=== PATIENT | male | born 2000 | race Caucasian/White ===

== ENCOUNTER 2022-02-24 19:09 | Emergency (ER) | payer OTHER, SELFPAY ==
[2022-02-24 19:15] VITALS: BP 138/68; PULSE 91; RESP 12; TEMP 36.6; O2SAT 98
--- NOTE | 2022-02-24 20:07 | W.ED.GENAD ---
Discharge Plan Disposition Patient Disposition: HOME Condition: Stable Discharge Details Clinical Impression: Avulsion of fingertip Primary Care Provider: Unknown,Unknown ED Provider: Marino Bustos Discharge Instructions Additional Instructions: Watch for any signs of infection and return immediately to the emergency department if these occur. keep wound clean and dry. Return to the emergency department for any significant return of bleeding that cannot be easily controlled. Stand Alone Forms: Work Release Referrals: Primary Care Provider [Outside] (As needed for reassessment) Discharge Data Discharge Date/Time-TO BE ENTERED AT DEPARTURE: 02/24/22 20:24 Medical Decision Making Patient presenting to the emergency department for chief complaint of left index finger laceration. He states he was cutting potatoes with a clean knife and cut the tip of his left index finger off. Patient denies any other injury or trauma. Physical exam shows a fingertip avulsion of the left index finger without involvement of the nail. Exam is otherwise unremarkable. Patient is unsure of when last tetanus was given so we will update tetanus. Digital block was performed and Dermabond was applied to wound. After tourniquet was removed appropriate hemostasis was achieved using this technique. Patient encouraged to keep wound clean and dry and prevent any trauma to the wound specifically for the next 48 hours to allow for appropriate hemostasis before resumption of activity. After discussion of diagnosis and plan of care patient has no further needs, questions, or concerns and states clear understanding to return to the emergency department for any worsening symptoms. This documentation was generated using [employer] system, please disregard any oddities of phrase or misspellings. HPI General Mode of arrival: ambulatory. Date/Time Provider Initiated Documentation: 02/24/22 20:05. Limitations to Documentation: no limitations. Information obtained by: patient and RN notes reviewed. History of Present Illness 21 year old M presents to the emergency department with the chief complaint of Left index finger last, described as moderate, Quality is described as sharp, and is localized to the left and upper extremity. Patient started experiencing this hour(s) (<1) and it has been constant. No relieving factors improve symptom(s), No exacerbating factors reported . Patient notes no other symptoms.. Patient did receive the following treatments prior to arrival, none General Stated Complaint: Trauma DIDIER: 3 Review of Systems Narrative: 6 systems reviewed and unremarkable except what is marked below. Integumentary/Breasts Skin/Breast: Reports as per HPI, Denies erythema, Denies unusual bruising and Reports wounds PFSH All Active Problems (Updated 02/24/22 @ 20:15 by Marino Bustos NP) Avulsion of fingertip (Acute) Social History Smoking/Tobacco Use Status: Never Smoking risk assessment performed?: Yes Alcohol Intake: never Drug use: Never Substance use type: does not use Do you feel safe at home: Yes Do you feel safe in your relationship?: Yes Exam Const General: cooperative, no acute distress and not ill appearing Orientation: alert, awake and oriented x3 Resp Effort & Inspection: normal respiratory effort, able to speak in complete sentences and no respiratory distress Cardio Rate: regular rate Rhythm: regular rhythm Pulses: normal peripheral pulses Skin General skin exam: no rashes or lesions noted Neuro General: patient alert, patient awake, patient oriented x3, moves all extremities and no focal motor deficits Sensory Exam: no sensory deficits noted Extrem General: normal to inspection and normal exam except as noted Left upper extremity: hand Details: laceration 2nd digit distal Details: avulsion, actively bleeding, superficial, with motor nerve function intact and with sensation intact Course Vital Signs Vital signs: Vital Signs Temperature 36.6 C 02/24/22 19:15 Pulse 91 H 02/24/22 19:15 Respiratory Rate 12 02/24/22 19:15 Blood Pressure 138/68 02/24/22 19:15 Pulse Oximetry 98 02/24/22 19:15 Temperature 36.6 C 02/24/22 19:15 Pulse 91 H 02/24/22 19:15 Respiratory Rate 12 02/24/22 19:15 Respiratory Effort 02/24/22 19:45 Blood Pressure 138/68 02/24/22 19:15 Blood Pressure Position Sitting 02/24/22 19:15 Pulse Oximetry 98 02/24/22 19:15 Oxygen Delivery Method Room Air 02/24/22 19:15 Oxygen Flow Rate 0 02/24/22 19:15 Pain Level 5 02/24/22 19:15 Procedures Laceration Laceration 1: Site: hand Side (If applicable): left Size (cm): 1 Description: clean Depth: simple, single layer Local Anesthetic: Lidocaine 2% Amount of anesthesia used (mL): 2 Pre-repair: wound explored and irrigated extensively Skin layer closed with: other (Dermabond)
== END 2022-02-24 20:24 | disposition home or self-care (01) ==
PROVIDERS: Emergency Provider Nurse Practitioner Family
DX: S61.211A Laceration without foreign body of left index finger without damage to nail, initial encounter (principal); W26.0XXA Contact with knife, initial encounter; Z23 Encounter for immunization
CPT/HCPCS: 12001; 90471; 99281; 99282

== ENCOUNTER 2025-02-22 16:30 | Outpatient (REF) | payer OTHER, SELFPAY ==
[2025-02-22 20:09] LABS: Abs Immature Grans 0.02 10^3/uL (0.0-0.06); HCT 52.0 % (40.0-50.0); HGB 17.9 g/dL (13.5-17.5); Immature Grans % 0.3 %; MCH 29.2 pg (27.0-33.0); MCHC 34.4 % (32.0-36.0); MCV 85 fL (80-95); MPV 9.7 fL (8.0-11.0); Platelet Count 241 10^3/uL (130-400); RBC 6.12 10^6/uL (4.36-5.78); RDW 12.0 % (11.8-14.1); RDW-SD 36.5 fL; WBC 6.22 10^3/uL (4.4-10.8)
[2025-02-22 20:34] LABS: RBC Morphology Normal
[2025-02-22 20:42] LABS: Anion Gap 7.1 mmol/L (3-11); BUN 23 mg/dL (7-18); CO2 30.9 mmol/L (21.0-32.0); Calcium 10.2 mg/dL (8.5-10.1); Chloride 100 mmol/L (98-107); Folate 19.4 ng/mL (8.6-20.0); Glucose 168 mg/dL (74-106); Potassium 5.7 mmol/L (3.5-5.1); Sodium 138 mmol/L (136-145); TSH 1.00 uIU/mL (0.36-3.74); Vitamin B12 755 pg/mL (193-986); Vitamin D 25 Total 33 ng/mL (30-100)
== END 2025-02-22 16:31 | disposition home or self-care (01) ==
LOC: NCHCN 16:30
PROVIDERS: Visit Provider Family Medicine
DX: R53.83 Other fatigue (principal); R41.840 Attention and concentration deficit; E10.9 Type 1 diabetes mellitus without complications; E55.9 Vitamin D deficiency, unspecified
CPT/HCPCS: 80048; 82306; 82607; 82746; 84443; 85025